=== PATIENT | female | born 1950 | race Caucasian/White ===

== ENCOUNTER → 2017-10-06 | Outpatient (CLI) | payer OTHER ==
[~2017-10-06] MED LIST: ACCUNEB SO1.25 MG/1 INH; ACETAMINOPHEN-1 EAC1 PO; ADVIL PM CAPLE1 EACH; ALBUTEROL2.5 MG/32; ATROVENT30 ML INH; BETIMOL 0.0.25 %/11; CALCIUM; CALCIUM 500 +1 EAC4 PO; CALCIUM CITRAT1 EA15 PO; CARDIZEM CD120 MG; CARDIZEM CD120 MG PO; CARDIZEM CD180 MG PO; CARDIZEM CD240 MG PO; CELLCEPT500 MG PO; CYMBALTA60 MG PO; DERMA-SMOOT118.28 ML TP; DESONIDE 0.05%60 M1 TP; DESOWEN60 GM TOP; DILTIAZEM ER240 M1 PO; DOXEPIN 25 MG C25 MG PO; ELEMENTAL CALC600 MG PO; FLOMAX0.4 MG PO; FLOVENT HFA 1110 MCG PO; FLUOXETINE HCL40 MG PO; HCTZ PO; HYDROCHLOROTHIA25 M1; HYDROXYCHLOROQ200 M1 PO; HYDROXYZINE HCL10 M1 PO; IMITREX 50 MG T50 M1; IMITREX 50 MG T50 MG PO; IRON325 PO; KEFLEX500 MG PO; KLOR-CON 1010 MEQ PO; LIORESAL 10 MG10 MG PO; LOCOID 0.1% CRE15 GM TOP; LOCOID 0.1% CRE15 GM TP; LOPERAMIDE 2 MG2 M1 PO; LYRICA 75 MG CA75 MG PO; MULTAQ400 MG PO; MULTIVITAMINS PO; NORTRIPTYLINE H25 M3 PO; OLUX50 GM TP; PACERONE 200 M200 M1 PO; PLAQUENIL200 MG PO; POTASSIUM20 PO; PRADAXA150 MG PO; PREDNISONE 10 M10 MG PO; PREVACID 24HR15 MG PO; PREVACID30 MG PO; PROPAFENONE 15150 MG PO; PROVENTIL17 G1; QUETIAPINE FUM200 MG PO; SEROQUEL 100 M100 MG PO; SEROQUEL 50 MG50 MG PO; SEROQUEL PO; SEROQUEL200 MG PO; SOTALOL 120 MG120 MG PO; TIMOLOL MA0.25 %/5 M OP; TIMOLOL MA0.25 %/5 M OPHTHALMIC; TOPAMAX 100 MG100 MG NG; TOPAMAX 100 MG100 MG PO; TOPAMAX200 MG PO; TOPIRAGEN100 MG; TRAZODONE 150150 M1 PO; TRIAMCINOLONE A80 G2 TOP; TYLENOL325 MG PO; VENTOLIN HFA INH8 GM PO; VITAMIN B-1000 MCG/2 INJECTION; VITAMIN B-12500 MCG; VITAMIN D1000 UNI1 PO; WELCHOL 625 MG625 M1 PO; WELLBUTRIN SR150 MG PO; XALATAN2.5 ML OPHTHALMIC; ZANAFLEX4 MG PO; [UNRECOGNIZED DRUG - OTHER]; [UNRECOGNIZED DRUG - OTHER]
== END ==
LOC: M.RAD 09-24 14:47
DX: Z12.31 Encounter for screening mammogram for malignant neoplasm of breast (principal); M85.89 Other specified disorders of bone density and structure, multiple sites; Z78.0 Asymptomatic menopausal state; M47.26 Other spondylosis with radiculopathy, lumbar region; M48.061 Spinal stenosis, lumbar region without neurogenic claudication

== ENCOUNTER → 2019-01-28 | Outpatient (CLI) | payer OTHER | LOC: M.RAD 01-26 15:30 | DX: M85.88 Other specified disorders of bone density and structure, other site (principal) ==